=== PATIENT | male | born 1965 | race African-American/Black ===

== ENCOUNTER 2016-12-21 00:59 | Emergency (ER) | payer MEDICARE, MEDICAID ==
[2016-12-21 01:51] LABS: ALT (SGPT) 26 U/L (0-55); AST (SGOT) 29 U/L (5-34); Alkaline Phosphatase 48 U/L (40-150); Anion Gap 16 mmol/L (10-20); BUN (Urea Nitrogen) 23 mg/dL (8.9-20.6); Bilirubin, Total 0.6 mg/dL (0.2-1.2); Calc. Creatinine Clearance 0 mL/min (70-130); Calcium 8.9 mg/dL (7.8-10.44); Carbon Dioxide 26 mmol/L (22-29); Chloride 101 mmol/L (98-107); Estimated GFR-MDRD 67; Globulin 3.9 g/dL (2.4-3.5); Protein, Total 7.7 g/dL (6.0-8.3)
[2016-12-21 01:53] LABS: Troponin I 0.015 ng/mL (< 0.028)
[2016-12-21 01:55] LABS: Band 1 % (5-11); Hematocrit 47.1 % (42.0-52.0); Mean Platelet Volume 8.1 fL (7.4-10.4); Neutrophil 62 % (42-75); Red Blood Cell (RBC) Count 5.26 mill/uL (4.70-6.10); White Blood Cell (WBC) Count 6.8 thou/uL (4.8-10.8)
--- NOTE | 2016-12-21 07:38 | RAD ---
PORTABLE CHEST: DATE: 12/21/16. FINDINGS: An AP portable film at 0122 is compared with a 09/20/16 study. The heart is moderately enlarged. Ev en though this is an AP projection, the overall size seems a little larger than it probably was befo re. There is no pulmonary edema or pleural effusion. One could argue that the upper lobe vessels m ay be minimally prominent, but it is a borderline finding. The cardiac pacer remains in place. No focal pulmonary infiltrates were seen. IMPRESSION: Moderate cardiomegaly with perhaps slight increase in heart size since 09/20/16. POS: HOME
== END 2016-12-21 03:50 | disposition short-term general hospital (02) ==
LOC: BURERS 00:59
DX: R07.2 Precordial pain (principal); E11.9 Type 2 diabetes mellitus without complications; I25.2 Old myocardial infarction; I11.0 Hypertensive heart disease with heart failure; I50.9 Heart failure, unspecified; J44.9 Chronic obstructive pulmonary disease, unspecified; Z79.84 Long term (current) use of oral hypoglycemic drugs; Z79.899 Other long term (current) drug therapy
CPT/HCPCS: 71010; 80053; 82553; 83880; 84484; 85025; 85379; 93005

== ENCOUNTER 2017-05-29 15:04 | Emergency (ER) | payer MEDICARE, MEDICAID ==
[2017-05-29] MEDS ORDERED: HYDROcodone/Acetaminophen 10/325 mg Tablet ONE (15:16)
[2017-05-29] MEDS ORDERED: predniSONE 20 MG TAB ONE (15:16)
[2017-05-29] MEDS ORDERED: Ibuprofen 800 MG TAB ONE (15:16)
[2017-05-29] MEDS ORDERED: Lisinopril 5 MG TAB ONE (15:26)
== END 2017-05-29 15:41 | disposition home or self-care (01) ==
LOC: BURERS 15:04
DX: M10.9 Gout, unspecified (principal); I11.0 Hypertensive heart disease with heart failure; I50.9 Heart failure, unspecified; E11.9 Type 2 diabetes mellitus without complications; J44.9 Chronic obstructive pulmonary disease, unspecified; Z79.899 Other long term (current) drug therapy; Z79.84 Long term (current) use of oral hypoglycemic drugs
CPT/HCPCS: 99283; J7506

== ENCOUNTER 2017-08-27 09:58 | Emergency (ER) | payer MEDICARE, MEDICAID ==
[2017-08-27] MEDS ORDERED: Fentanyl 100 MCG/2 ML VIAL ONE (10:11)
== END 2017-08-27 10:38 | disposition home or self-care (01) ==
LOC: BURERS 09:58
DX: M10.9 Gout, unspecified (principal); E66.9 Obesity, unspecified; E11.9 Type 2 diabetes mellitus without complications; I11.0 Hypertensive heart disease with heart failure; I50.9 Heart failure, unspecified; J44.9 Chronic obstructive pulmonary disease, unspecified
CPT/HCPCS: 96372; J3010

== ENCOUNTER 2017-10-29 17:40 | Emergency (ER) | payer MEDICARE, MEDICAID ==
[2017-10-29 18:05] LABS: #Basophils 0.1 thou/uL (0.0-0.2); #Eosinphils 0.2 thou/uL (0.0-0.7); #Lymphocytes 1.9 thou/uL (1.20-3.40); #Monocytes 0.6 thou/uL (0.11-0.59); #Neutrophils 2.5 thou/uL (1.40-6.50); %Basophils 2.5 % (0.0-1.0); %Eosinophils 4.4 % (0.0-10.0); %Lymphocytes 35.1 % (21.0-51.0); %Monocytes 11.5 % (0.0-10.0); %Neutrophils 46.4 % (42.0-75.0); Hemoglobin 14.4 g/dL (14.0-18.0); Mean Corpuscular HGB CONC 31.7 g/dL (32.0-36.0); Mean Corpuscular Hemoglobin 28.1 pg (27.0-31.0); Mean Corpuscular Volume 88.7 fl (80.0-94.0); Mean Platelet Volume 7.1 fL (7.4-10.4); Platelet Count 242 thou/uL (130-400); RBC Distribution Width 13.3 % (11.5-14.5); Red Blood Cell (RBC) Count 5.12 mill/uL (4.70-6.10); White Blood Cell (WBC) Count 5.3 thou/uL (4.8-10.8)
[2017-10-29 18:08] LABS: Base Excess 3.1 mEq/L (-2 - +2); Hemoglobin (Hb) 15.3 g/dL (13.1-17.2); pH (venous) 7.39 (7.35-7.45)
[2017-10-29 18:23] LABS: ALT (SGPT) 17 U/L (8-55); AST (SGOT) 16 U/L (5-34); Albumin 3.7 g/dL (3.5-5.0); Alkaline Phosphatase 51 U/L (40-150); Anion Gap 14 mmol/L (10-20); BUN (Urea Nitrogen) 16 mg/dL (8.9-20.6); Bilirubin, Total 0.6 mg/dL (0.2-1.2); Calc. Creatinine Clearance 0 mL/min (70-130); Calcium 8.8 mg/dL (7.8-10.44); Carbon Dioxide 26 mmol/L (22-29); Chloride 103 mmol/L (98-107); Estimated GFR-MDRD Greater than 90; Globulin 3.8 g/dL (2.4-3.5); Glucose 139 mg/dL (70-105); Potassium 4.1 mmol/L (3.5-5.1); Protein, Total 7.5 g/dL (6.0-8.3); Sodium 139 mmol/L (136-145)
[2017-10-29 18:25] LABS: CKMB 1.5 ng/mL (0-6.6); Troponin I 0.015 ng/mL (< 0.028)
--- NOTE | 2017-10-29 22:18 | RAD ---
PORTABLE CHEST: Date: 10-29-17 An AP portable film at 1752 is compared with an 09-13-17 study. FINDINGS: Cardiomegaly is about the same as before. There is no clear congestion or edema at the moment. No lob ar infiltrates or effusions were seen. A cardiac pacer is in place as usual. IMPRESSION: Cardiomegaly with no definite acute findings. POS: HOME
== END 2017-10-29 20:20 | disposition short-term general hospital (02) ==
LOC: BURERS 17:40
DX: R07.9 Chest pain, unspecified (principal); E78.5 Hyperlipidemia, unspecified; E66.9 Obesity, unspecified; E11.9 Type 2 diabetes mellitus without complications; M10.9 Gout, unspecified; I11.0 Hypertensive heart disease with heart failure; I50.9 Heart failure, unspecified; J44.9 Chronic obstructive pulmonary disease, unspecified; Z79.82 Long term (current) use of aspirin; Z79.84 Long term (current) use of oral hypoglycemic drugs; Z79.899 Other long term (current) drug therapy
CPT/HCPCS: 71045; 80053; 82553; 82805; 83880; 84484; 85025; 93005

== ENCOUNTER 2018-08-23 16:54 | Emergency (ER) | payer MEDICARE, MEDICAID ==
[2018-08-23] MEDS ORDERED: Nitroglycerin 0.4 MG TAB (25 Tab Bottle) ONE (17:10)
[2018-08-23] MEDS ORDERED: Nitroglycerin 2% Ointment 1 INCH/1 GM Packet ONE (17:10)
[2018-08-23 17:24] LABS: #Basophils 0.1 thou/uL (0.0-0.2); #Eosinphils 0.2 thou/uL (0.0-0.7); #Lymphocytes 1.2 thou/uL (1.20-3.40); #Monocytes 0.6 thou/uL (0.11-0.59); %Basophils 2.5 % (0.0-1.0); %Eosinophils 5.6 % (0.0-10.0); %Lymphocytes 29.5 % (21.0-51.0); %Neutrophils 48.4 % (42.0-75.0); Hemoglobin 14.7 g/dL (14.0-18.0); Mean Corpuscular HGB CONC 32.3 g/dL (32.0-36.0); Mean Corpuscular Hemoglobin 28.6 pg (27.0-31.0); Mean Corpuscular Volume 88.7 fL (78.0-98.0); Mean Platelet Volume 7.5 fL (7.4-10.4); Platelet Count 171 thou/uL (130-400); RBC Distribution Width 13.3 % (11.5-14.5); Red Blood Cell (RBC) Count 5.13 mill/uL (4.70-6.10); White Blood Cell (WBC) Count 4.2 thou/uL (4.8-10.8)
--- NOTE | 2018-08-23 17:36 | RAD ---
PORTABLE CHEST: 08/23/18 An AP portable film at 1643 is compared with the 10/15 03/01 study. Cardiomegaly is about the same as before. The cardiac pacer remains in place. The prominence of the m ediastinum is felt to be due to the portable positioning of the patient. There is no clear vascular c ongestion or pulmonary edema. No major lobar infiltrate or effusion was seen. There is slight haziness in the right base medially but I believe this is due to the patient being ro tated slightly. IMPRESSION: Cardiomegaly with no definite acute findings. POS: HOME
[2018-08-23 17:41] LABS: ALT (SGPT) 52 U/L (8-55); AST (SGOT) 25 U/L (5-34); Albumin 3.9 g/dL (3.5-5.0); Alkaline Phosphatase 90 U/L (40-150); Anion Gap 15 mmol/L (10-20); BUN (Urea Nitrogen) 16 mg/dL (8.4-25.7); Bilirubin, Total 0.6 mg/dL (0.2-1.2); Calc. Creatinine Clearance 0 mL/min (70-130); Calcium 9.2 mg/dL (7.8-10.44); Carbon Dioxide 28 mmol/L (22-29); Chloride 103 mmol/L (98-107); Estimated GFR-MDRD 66; Globulin 3.9 g/dL (2.4-3.5); Glucose 90 mg/dL (70-105); Potassium 4.4 mmol/L (3.5-5.1); Protein, Total 7.8 g/dL (6.0-8.3); Sodium 142 mmol/L (136-145)
[2018-08-23 17:46] LABS: Troponin I Less than 0.010 ng/mL (< 0.028)
[2018-08-23] MEDS ORDERED: Furosemide 40 MG/4 ML VIAL ONE (18:10)
== END 2018-08-23 18:26 | disposition short-term general hospital (02) ==
LOC: BURERS 16:54
DX: I11.0 Hypertensive heart disease with heart failure (principal); I50.9 Heart failure, unspecified; E78.5 Hyperlipidemia, unspecified; M10.9 Gout, unspecified; E66.9 Obesity, unspecified; E11.9 Type 2 diabetes mellitus without complications; J44.9 Chronic obstructive pulmonary disease, unspecified; Z79.899 Other long term (current) drug therapy; Z79.82 Long term (current) use of aspirin
CPT/HCPCS: 71045; 80053; 82553; 83880; 84484; 85025; 93005; 96374; J1940

== ENCOUNTER 2018-12-27 15:09 | Emergency (ER) | payer MEDICARE, MEDICAID ==
[2018-12-27 16:00] LABS: Base Excess-Venous 3.7 mmol/L (-2.0 to 3.0); Bicarbonate (HCO3v) 31.5 mmol/L (22.0-28.0); CO2 Tension (PvCO2) 57.7 mmHg (40.0-50.0); Calcium, Ionized 1.04 mmol/L (See Comments:); Chloride 101 mmol/L (98-107); Hemoglobin - Calc 18.2 g/dL (14.0-18.0); O2 Tension (PvO2) 49.5 mmHg (35.0-45.0); Potassium 4.1 mmol/L (3.5-5.1); Sodium 138 mmol/L (138-145); T. Carbon Dioxide 33.3 mmol/L (22.0-28.0); pH (Venous) 7.346 (7.320-7.430); vO2 Saturation-calc 81.4 % (60.0-85.0)
[2018-12-27] MEDS ORDERED: Furosemide 40 MG/4 ML VIAL ONE (16:00)
[2018-12-27 16:01] LABS: ALT (SGPT) 24 U/L (8-55); AST (SGOT) 28 U/L (5-34); Albumin 3.7 g/dL (3.5-5.0); Alkaline Phosphatase 61 U/L (40-150); Anion Gap 16 mmol/L (10-20); BUN (Urea Nitrogen) 17 mg/dL (8.4-25.7); Bilirubin, Total 0.5 mg/dL (0.2-1.2); Calc. Creatinine Clearance 0 mL/min (70-130); Calcium 8.8 mg/dL (7.8-10.44); Carbon Dioxide 27 mmol/L (22-29); Chloride 101 mmol/L (98-107); Estimated GFR-MDRD 68; Globulin 4.5 g/dL (2.4-3.5); Glucose 112 mg/dL (70-105); Potassium 4.2 mmol/L (3.5-5.1); Protein, Total 8.2 g/dL (6.0-8.3); Sodium 140 mmol/L (136-145)
[2018-12-27 16:04] LABS: #Basophils 0.1 thou/uL (0.0-0.2); #Eosinphils 0.1 thou/uL (0.0-0.7); #Lymphocytes 1.6 thou/uL (1.20-3.40); #Monocytes 0.5 thou/uL (0.11-0.59); #Neutrophils 1.4 thou/uL (1.40-6.50); %Basophils 2.1 % (0.0-1.0); %Lymphocytes 43.5 % (21.0-51.0); %Monocytes 13.5 % (0.0-10.0); %Neutrophils 38.9 % (42.0-75.0); Hemoglobin 16.3 g/dL (14.0-18.0); Mean Corpuscular HGB CONC 33.5 g/dL (32.0-36.0); Mean Corpuscular Hemoglobin 30.4 pg (27.0-31.0); Mean Corpuscular Volume 90.7 fL (78.0-98.0); Mean Platelet Volume 7.7 fL (7.4-10.4); Platelet Count 179 thou/uL (130-400); RBC Distribution Width 12.9 % (11.5-14.5); Red Blood Cell (RBC) Count 5.37 mill/uL (4.70-6.10); White Blood Cell (WBC) Count 3.7 thou/uL (4.8-10.8)
--- NOTE | 2018-12-27 16:07 | RAD ---
CHEST ONE VIEW: HISTORY: Dyspnea. Cough. COMPARISON: 08/23/2018 FINDINGS: Large body habitus lowers the sensitivity of this study. Left transvenous pacemaker is seen. There is cardiomegaly with bilateral vascular congestion. No evidence for confluent lobar pneumonia. Appe arance is overall stable. IMPRESSION: Stable appearing cardiomegaly and vascular congestion without confluent pneumonia. POS: [facility]
[2018-12-27] MEDS ORDERED: Oseltamivir 75 MG CAP ONE (16:25)
== END 2018-12-27 16:33 | disposition home or self-care (01) ==
LOC: BURERS 15:09
DX: J10.1 Influenza due to other identified influenza virus with other respiratory manifestations (principal); M10.9 Gout, unspecified; E66.9 Obesity, unspecified; E11.9 Type 2 diabetes mellitus without complications; E78.5 Hyperlipidemia, unspecified; J44.9 Chronic obstructive pulmonary disease, unspecified; I50.9 Heart failure, unspecified; Z79.899 Other long term (current) drug therapy; Z79.82 Long term (current) use of aspirin; Z79.891 Long term (current) use of opiate analgesic
CPT/HCPCS: 71045; 80053; 82330; 82803; 83880; 84484; 85025; 87804; 93005; 96374; J1940

== ENCOUNTER 2019-01-10 22:04 | Emergency (ER) | payer MEDICARE, MEDICAID ==
[2019-01-10] MEDS ORDERED: predniSONE 20 MG TAB ONE (22:25)
[2019-01-10] MEDS ORDERED: Ketorolac Tromethamine 60 MG/2 ML VIAL ONE (22:26)
== END 2019-01-10 22:45 | disposition home or self-care (01) ==
LOC: BURERS 22:04
DX: M70.21 Olecranon bursitis, right elbow (principal); E78.5 Hyperlipidemia, unspecified; M10.9 Gout, unspecified; E66.9 Obesity, unspecified; E11.9 Type 2 diabetes mellitus without complications; I11.0 Hypertensive heart disease with heart failure; I50.9 Heart failure, unspecified; J44.9 Chronic obstructive pulmonary disease, unspecified
CPT/HCPCS: 96372; J1885

== ENCOUNTER 2019-02-17 17:11 | Emergency (ER) | payer MEDICARE, MEDICAID ==
[2019-02-17] MEDS ORDERED: Furosemide 40 MG/4 ML VIAL ONE (17:47)
[2019-02-17] MEDS ORDERED: Nitroglycerin 2% Ointment 1 INCH/1 GM Packet ONE (17:47)
[2019-02-17] MEDS ORDERED: Aspirin Chewable 81 MG TAB ONE (17:47)
[2019-02-17 18:17] LABS: #Basophils 0.1 thou/uL (0.0-0.2); #Lymphocytes 1.5 thou/uL (1.20-3.40); #Monocytes 0.6 thou/uL (0.11-0.59); #Neutrophils 2.7 thou/uL (1.40-6.50); %Basophils 1.4 % (0.0-1.0); %Lymphocytes 31.1 % (21.0-51.0); %Monocytes 11.6 % (0.0-10.0); Hemoglobin 12.2 g/dL (14.0-18.0); Mean Corpuscular HGB CONC 29.9 g/dL (32.0-36.0); Mean Corpuscular Hemoglobin 26.6 pg (27.0-31.0); Mean Platelet Volume 6.2 fL (7.4-10.4); Platelet Count 428 thou/uL (130-400); RBC Distribution Width 13.3 % (11.5-14.5); Red Blood Cell (RBC) Count 4.57 mill/uL (4.70-6.10); White Blood Cell (WBC) Count 4.9 thou/uL (4.8-10.8)
[2019-02-17 18:27] LABS: ALT (SGPT) 75 U/L (8-55); AST (SGOT) 51 U/L (5-34); Alkaline Phosphatase 221 U/L (40-150); Anion Gap 13 mmol/L (10-20); BUN (Urea Nitrogen) 18 mg/dL (8.4-25.7); Bilirubin, Total 0.6 mg/dL (0.2-1.2); Calc. Creatinine Clearance 0 mL/min (70-130); Calcium 8.6 mg/dL (7.8-10.44); Carbon Dioxide 31 mmol/L (22-29); Chloride 99 mmol/L (98-107); Estimated GFR-MDRD 73; Glucose 120 mg/dL (70-105); Lipase 321 U/L (8-78); Sodium 139 mmol/L (136-145)
[2019-02-17] MEDS ORDERED: hydrALAZINE 25 MG TAB PO SCH (19:45)
[2019-02-17] MEDS ORDERED: Carvedilol 25 MG TAB PO SCH (19:45)
--- NOTE | 2019-02-17 20:22 | RAD ---
PORTABLE CHEST: Date: 02-17-19 An AP portable film at 1735 is compared to a 01-14-19 study from [facility]. FINDINGS: Mild cardiomegaly is about the same as before. There is no vascular congestion, edema, or pleural eff usion. The lungs are clear. Cardiac pacer remains in place and the generator partially obscures areas around the left lower lobe/left costophrenic angle. IMPRESSION: Mild cardiomegaly but no congestive change. POS: HOME
[2019-02-17 20:25] LABS: Troponin I Less than 0.010 ng/mL (< 0.028)
== END 2019-02-17 20:42 | disposition home or self-care (01) ==
LOC: BURERS 17:11
DX: I16.0 Hypertensive urgency (principal); E11.9 Type 2 diabetes mellitus without complications; J44.9 Chronic obstructive pulmonary disease, unspecified; M10.9 Gout, unspecified; I11.0 Hypertensive heart disease with heart failure; I50.9 Heart failure, unspecified; Z79.82 Long term (current) use of aspirin; Z79.899 Other long term (current) drug therapy; Z79.891 Long term (current) use of opiate analgesic
CPT/HCPCS: 71045; 80053; 83690; 83880; 84484; 85025; 93005; 96374; J1940; J7620

== ENCOUNTER 2019-04-11 09:47 | Emergency (ER) | payer MEDICARE, MEDICAID ==
[2019-04-11 10:21] LABS: #Basophils 0.1 thou/uL (0.0-0.2); #Eosinphils 0.1 thou/uL (0.0-0.7); #Lymphocytes 1.5 thou/uL (1.20-3.40); #Monocytes 0.7 thou/uL (0.11-0.59); #Neutrophils 4.4 thou/uL (1.40-6.50); %Basophils 0.8 % (0.0-1.0); %Eosinophils 1.3 % (0.0-10.0); %Lymphocytes 22.1 % (21.0-51.0); %Monocytes 10.6 % (0.0-10.0); %Neutrophils 65.2 % (42.0-75.0); Hemoglobin 10.4 g/dL (14.0-18.0); Mean Corpuscular HGB CONC 30.5 g/dL (32.0-36.0); Mean Corpuscular Hemoglobin 26.4 pg (27.0-31.0); Mean Corpuscular Volume 86.5 fL (78.0-98.0); Platelet Count 309 thou/uL (130-400); RBC Distribution Width 14.1 % (11.5-14.5); Red Blood Cell (RBC) Count 3.96 mill/uL (4.70-6.10); White Blood Cell (WBC) Count 6.7 thou/uL (4.8-10.8)
[2019-04-11] MEDS ORDERED: Ibuprofen 800 MG TAB ONE (10:27)
[2019-04-11] MEDS ORDERED: HYDROcodone/Acetaminophen 10/325 mg Tablet ONE (10:28)
== END 2019-04-11 10:42 | disposition home or self-care (01) ==
LOC: BURERS 09:47
DX: M10.9 Gout, unspecified (principal); I11.0 Hypertensive heart disease with heart failure; I50.9 Heart failure, unspecified; E11.9 Type 2 diabetes mellitus without complications; E78.5 Hyperlipidemia, unspecified; J44.9 Chronic obstructive pulmonary disease, unspecified; Z87.898 Personal history of other specified conditions; Z86.718 Personal history of other venous thrombosis and embolism; Z79.84 Long term (current) use of oral hypoglycemic drugs; Z79.899 Other long term (current) drug therapy
CPT/HCPCS: 36415; 84550; 85025; 99283

== ENCOUNTER 2019-07-23 02:02 | Emergency (ER) | payer MEDICARE, OTHER ==
[2019-07-23] MEDS ORDERED: Aspirin Chewable 81 MG TAB ONE (02:18)
[2019-07-23] MEDS ORDERED: Nitroglycerin 0.4 MG TAB 1 EACH ONE (02:18)
[2019-07-23] MEDS ORDERED: Metoprolol Tartrate 5 MG/5 ML VIAL ONE (02:22)
[2019-07-23 02:31] LABS: PTT 29.2 SEC (22.9-36.1); Prothrombin Time 12.9 SEC (12.0-14.7)
[2019-07-23 02:39] LABS: ALT (SGPT) 20 U/L (8-55); AST (SGOT) 20 U/L (5-34); Albumin 3.9 g/dL (3.5-5.0); Alkaline Phosphatase 63 U/L (40-110); Anion Gap 18 mmol/L (10-20); BUN (Urea Nitrogen) 19 mg/dL (8.4-25.7); Bilirubin, Total 0.7 mg/dL (0.2-1.2); Calc. Creatinine Clearance 0 mL/min (70-130); Calcium 9.1 mg/dL (7.8-10.44); Carbon Dioxide 27 mmol/L (22-29); Chloride 100 mmol/L (98-107); Estimated GFR-MDRD 67; Globulin 4.3 g/dL (2.4-3.5); Glucose 126 mg/dL (70-105); Potassium 3.5 mmol/L (3.5-5.1); Protein, Total 8.2 g/dL (6.0-8.3); Sodium 141 mmol/L (136-145)
[2019-07-23 02:46] LABS: Eosinophils 3 % (0-10); Hemoglobin 14.3 g/dL (14.0-18.0); Lymphocytes 36 % (21-51); MDiff Complete? YES; Mean Corpuscular Hemoglobin 27.5 pg (27.0-31.0); Mean Corpuscular Volume 85.8 fL (78.0-98.0); Mean Platelet Volume 6.9 fL (7.4-10.4); Monocytes 7 % (0-10); Neutrophil 54 % (42-75); Platelet Count 234 thou/uL (130-400); Platelet Morphology Comment Appears Adequate; RBC Distribution Width 14.1 % (11.5-14.5); RBC Morphology Normal; White Blood Cell (WBC) Count 5.8 thou/uL (4.8-10.8)
--- NOTE | 2019-07-23 07:41 | RAD ---
PORTABLE CHEST: DATE: 07/23/2019. FINDINGS: An AP portable film at 0229 is compared with a 03/12/2019 study from [facility]. The heart is borderline in size but unchanged. There is no vascular congestion or edema. No pleural effusions are seen. No definite lobar consolidations are seen. Slight haziness over the lower lung s is felt to be due to the overlying soft tissues. A cardiac pacer is in place as usual. The genera tor partially obscures the left base. IMPRESSION: No acute finding. POS: HOME
== END 2019-07-23 03:03 | disposition short-term general hospital (02) ==
LOC: BURERS 02:02
DX: R07.89 Other chest pain (principal); I11.0 Hypertensive heart disease with heart failure; I50.9 Heart failure, unspecified; E11.9 Type 2 diabetes mellitus without complications; E78.5 Hyperlipidemia, unspecified; J44.9 Chronic obstructive pulmonary disease, unspecified; Z79.899 Other long term (current) drug therapy
CPT/HCPCS: 71045; 80053; 83880; 84484; 85025; 85610; 85730; 93005; 96374

== ENCOUNTER 2019-08-13 17:06 | Emergency (ER) | payer MEDICARE, MEDICAID ==
[2019-08-13] MEDS ORDERED: Nitroglycerin 0.4 MG TAB 1 EACH ONE (17:22)
[2019-08-13] MEDS ORDERED: Nitroglycerin 2% Ointment 1 INCH/1 GM Packet ONE (17:23)
[2019-08-13 17:26] LABS: #Basophils 0.1 thou/uL (0.0-0.2); #Eosinphils 0.1 thou/uL (0.0-0.7); #Lymphocytes 2.2 thou/uL (1.20-3.40); #Monocytes 0.6 thou/uL (0.11-0.59); %Basophils 1.9 % (0.0-1.0); %Eosinophils 2.5 % (0.0-10.0); %Lymphocytes 43.7 % (21.0-51.0); %Monocytes 12.3 % (0.0-10.0); %Neutrophils 39.6 % (42.0-75.0); Hemoglobin 13.4 g/dL (14.0-18.0); Mean Corpuscular HGB CONC 30.4 g/dL (32.0-36.0); Mean Corpuscular Hemoglobin 27.7 pg (27.0-31.0); Mean Corpuscular Volume 91.3 fL (78.0-98.0); Mean Platelet Volume 6.8 fL (7.4-10.4); Platelet Count 283 thou/uL (130-400); RBC Distribution Width 14.2 % (11.5-14.5); Red Blood Cell (RBC) Count 4.82 mill/uL (4.70-6.10); White Blood Cell (WBC) Count 5.1 thou/uL (4.8-10.8)
[2019-08-13] MEDS ORDERED: Aspirin Chewable 81 MG TAB ONE (17:28)
[2019-08-13] MEDS ORDERED: Fentanyl 100 MCG/2 ML VIAL ONE (17:39)
[2019-08-13 17:44] LABS: ALT (SGPT) 18 U/L (8-55); AST (SGOT) 18 U/L (5-34); Albumin 4.1 g/dL (3.5-5.0); Alkaline Phosphatase 52 U/L (40-110); Anion Gap 15 mmol/L (10-20); BUN (Urea Nitrogen) 26 mg/dL (8.4-25.7); Bilirubin, Total 0.7 mg/dL (0.2-1.2); Calc. Creatinine Clearance 0 mL/min (70-130); Calcium 9.1 mg/dL (7.8-10.44); Carbon Dioxide 27 mmol/L (22-29); Chloride 102 mmol/L (98-107); Estimated GFR-MDRD 40; Globulin 3.8 g/dL (2.4-3.5); Glucose 92 mg/dL (70-105); Potassium 4.4 mmol/L (3.5-5.1); Protein, Total 7.9 g/dL (6.0-8.3); Sodium 140 mmol/L (136-145)
[2019-08-13] MEDS ORDERED: Metoprolol Tartrate 5 MG/5 ML VIAL ONE (18:00)
--- NOTE | 2019-08-14 01:00 | RAD ---
PORTABLE CHEST: 08/13/19 An AP portable film at 1718 is compared with a 07/23/19 study. Mild cardiomegaly is present. There is no pulmonary edema or pleural effusion. No focal pulmonary inf iltrate was seen. A cardiac pacer remains in place. IMPRESSION: Cardiomegaly with minimal change since the prior study. POS: HOME
== END 2019-08-13 18:14 | disposition short-term general hospital (02) ==
LOC: BURERS 17:06
DX: R07.9 Chest pain, unspecified (principal); N28.9 Disorder of kidney and ureter, unspecified; R00.2 Palpitations; T46.5X5A Adverse effect of other antihypertensive drugs, initial encounter; I11.0 Hypertensive heart disease with heart failure; I50.9 Heart failure, unspecified; E11.9 Type 2 diabetes mellitus without complications; E78.5 Hyperlipidemia, unspecified; J44.9 Chronic obstructive pulmonary disease, unspecified; Z79.899 Other long term (current) drug therapy; Z79.84 Long term (current) use of oral hypoglycemic drugs; Z86.718 Personal history of other venous thrombosis and embolism; Z79.82 Long term (current) use of aspirin
CPT/HCPCS: 36416; 71045; 80053; 83880; 84484; 85025; 93005; 94760; 96374; 96375; J3010

== ENCOUNTER 2020-05-24 01:57 | Emergency (ER) | payer MEDICARE, MEDICAID ==
[2020-05-24] MEDS ORDERED: HYDROcodone/Acetaminophen 10/325 mg Tablet ONE (02:30)
[2020-05-24] MEDS ORDERED: Ibuprofen 800 MG TAB ONE (02:31)
== END 2020-05-24 02:33 | disposition home or self-care (01) ==
LOC: BURERS 01:57
DX: M10.9 Gout, unspecified (principal); I11.0 Hypertensive heart disease with heart failure; I50.9 Heart failure, unspecified; E11.9 Type 2 diabetes mellitus without complications; E78.5 Hyperlipidemia, unspecified; J44.9 Chronic obstructive pulmonary disease, unspecified; Z86.718 Personal history of other venous thrombosis and embolism; Z79.899 Other long term (current) drug therapy; Z79.84 Long term (current) use of oral hypoglycemic drugs; Z79.82 Long term (current) use of aspirin
CPT/HCPCS: 99283

== ENCOUNTER 2020-06-14 03:10 | Emergency (ER) | payer MEDICARE, OTHER ==
[2020-06-14 04:09] LABS: ALT (SGPT) 16 U/L (8-55); AST (SGOT) 18 U/L (5-34); Albumin 3.8 g/dL (3.5-5.0); Alkaline Phosphatase 55 U/L (40-110); Anion Gap 16 mmol/L (10-20); BUN (Urea Nitrogen) 22 mg/dL (8.4-25.7); Bilirubin, Total 0.8 mg/dL (0.2-1.2); Calc. Creatinine Clearance 0 mL/min (70-130); Calcium 8.7 mg/dL (7.8-10.44); Carbon Dioxide 28 mmol/L (22-29); Chloride 101 mmol/L (98-107); Estimated GFR-MDRD 56; Globulin 3.5 g/dL (2.4-3.5); Glucose 150 mg/dL (70-105); Potassium 3.8 mmol/L (3.5-5.1); Protein, Total 7.3 g/dL (6.0-8.3); Sodium 141 mmol/L (136-145)
[2020-06-14 06:05] LABS: #Eosinphils 0.2 thou/uL (0.0-0.7); #Lymphocytes 1.8 thou/uL (1.20-3.40); #Monocytes 0.6 thou/uL (0.11-0.59); #Neutrophils 2.6 thou/uL (1.40-6.50); %Basophils 0.5 % (0.0-1.0); %Eosinophils 3.2 % (0.0-10.0); %Lymphocytes 34.7 % (21.0-51.0); %Monocytes 11.5 % (0.0-10.0); %Neutrophils 50.1 % (42.0-75.0); Hemoglobin 13.6 g/dL (14.0-18.0); Mean Corpuscular HGB CONC 32.4 g/dL (32.0-36.0); Mean Corpuscular Hemoglobin 29.3 pg (27.0-31.0); Mean Corpuscular Volume 90.2 fL (78.0-98.0); Mean Platelet Volume 8.3 fL (7.4-10.4); Platelet Count 226 thou/uL (130-400); RBC Distribution Width 12.9 % (11.5-14.5); Red Blood Cell (RBC) Count 4.63 mill/uL (4.70-6.10); White Blood Cell (WBC) Count 5.2 thou/uL (4.8-10.8)
--- NOTE | 2020-06-14 07:42 | RAD ---
PORTABLE CHEST: Date: 06/14/2020 An AP portable film at 0402 hours is compared with the 08/13/2019 study. A cardiac pacer is in place as usual. Mild cardiomegaly seems no different than before. There is no v ascular congestion, pulmonary edema, or large pleural effusions. The lungs are clear. IMPRESSION: Mild cardiomegaly, but no acute finding. POS: HOME
== END 2020-06-14 04:43 | disposition home or self-care (01) ==
LOC: BURERS 03:10
DX: G47.33 Obstructive sleep apnea (adult) (pediatric) (principal); R00.2 Palpitations; I11.0 Hypertensive heart disease with heart failure; I50.9 Heart failure, unspecified; E11.9 Type 2 diabetes mellitus without complications; E78.5 Hyperlipidemia, unspecified; J44.9 Chronic obstructive pulmonary disease, unspecified; Z86.718 Personal history of other venous thrombosis and embolism; M10.9 Gout, unspecified; Z79.899 Other long term (current) drug therapy; Z79.82 Long term (current) use of aspirin; Z79.84 Long term (current) use of oral hypoglycemic drugs
CPT/HCPCS: 36415; 71045; 80053; 83880; 84484; 85025; 93005; 94760

== ENCOUNTER 2020-09-24 09:10 | Emergency (ER) | payer MEDICARE, MEDICAID ==
[2020-09-24] MEDS ORDERED: Ketorolac Tromethamine 30 MG/ML VIAL ONE (09:31)
== END 2020-09-24 09:45 | disposition home or self-care (01) ==
LOC: BURERS 09:10
DX: M54.31 Sciatica, right side (principal); I10 Essential (primary) hypertension; Z79.899 Other long term (current) drug therapy; E11.9 Type 2 diabetes mellitus without complications; I11.0 Hypertensive heart disease with heart failure; I50.9 Heart failure, unspecified; E78.5 Hyperlipidemia, unspecified; J44.9 Chronic obstructive pulmonary disease, unspecified; M10.9 Gout, unspecified; G47.30 Sleep apnea, unspecified
CPT/HCPCS: 96372; 99283; J1885

== ENCOUNTER 2020-11-15 09:13 | Emergency (ER) | payer MEDICARE, MEDICAID ==
[2020-11-15 09:58] LABS: Band 3 % (5-11); Hemoglobin 14.1 g/dL (14.0-18.0); Lymphocytes 29 % (21-51); MDiff Complete? YES; Mean Corpuscular HGB CONC 31.3 g/dL (32.0-36.0); Mean Corpuscular Hemoglobin 27.9 pg (27.0-31.0); Mean Corpuscular Volume 89.3 fL (78.0-98.0); Mean Platelet Volume 7.3 fL (7.4-10.4); Monocytes 3 % (0-10); Neutrophil 65 % (42-75); Platelet Count 313 thou/uL (130-400); Red Blood Cell (RBC) Count 5.04 mill/uL (4.70-6.10); White Blood Cell (WBC) Count 7.8 thou/uL (4.8-10.8)
[2020-11-15 10:11] LABS: ALT (SGPT) 14 U/L (8-55); AST (SGOT) 17 U/L (5-34); Albumin 4.2 g/dL (3.5-5.0); Alkaline Phosphatase 53 U/L (40-110); Anion Gap 19 mmol/L (10-20); BUN (Urea Nitrogen) 34 mg/dL (8.4-25.7); Bilirubin, Total 0.7 mg/dL (0.2-1.2); CK (CPK) 301 U/L (30-200); Calc. Creatinine Clearance 0 mL/min (70-130); Calcium 9.5 mg/dL (7.8-10.44); Carbon Dioxide 23 mmol/L (22-29); Chloride 101 mmol/L (98-107); Globulin 4.3 g/dL (2.4-3.5); Glucose 115 mg/dL (70-105); Potassium 4.5 mmol/L (3.5-5.1); Protein, Total 8.5 g/dL (6.0-8.3); Sodium 138 mmol/L (136-145)
[2020-11-15] MEDS ORDERED: traMADol HCl 50 MG TAB ONE (10:48)
--- NOTE | 2020-11-15 13:33 | RAD ---
PORTABLE CHEST: DATE: 11/15/2020. FINDINGS: An AP portable film at 1017 is compared with an 06/14/2020 study. FINDINGS: Mild cardiomegaly is about the same as before. There is no overt pulmonary edema or congestion. No effusions were seen. A unipolar cardiac pacer remains in place. The lungs are clear. IMPRESSION: No acute finding. POS: HOME
--- NOTE | 2020-11-15 13:34 | RAD ---
LEFT KNEE 4 VIEWS: DATE: 11/15/2020. FINDINGS: Degenerative changes are present, somewhat advanced for age. This includes osteophytes and medial ho int space narrowing. Patellofemoral osteophytes are seen. There is probably a small joint effusion, but no acute bony change was noted. IMPRESSION: Degenerative changes and small joint effusion. POS: HOME
--- NOTE | 2020-11-15 13:36 | RAD ---
LEFT ANKLE 3 VIEWS: DATE: 11/15/2020. FINDINGS: Marked soft tissue swelling is present. There are numerous dystrophic calcifications in the soft tis sues that are most likely due to chronic venous stasis. The underlying bones showed no acute change. A large calcaneal spur was noted. IMPRESSION: Soft tissue swelling with dystrophic skin calcifications. No acute bony findings. POS: HOME
--- NOTE | 2020-11-15 13:37 | RAD ---
RIGHT ANKLE 3 VIEWS: DATE: 11/15/2020. COMPARISON: Comparison is made with the left ankle. Soft tissue swelling is present here as well, along with num erous dystrophic calcifications that are likely related to chronic venous insufficiency and stasis. No fracture or acute bony change was seen. A calcaneal spur is present. IMPRESSION: Swelling and soft tissue calcification. POS: HOME
== END 2020-11-15 11:14 | disposition home or self-care (01) ==
LOC: BURERS 09:13
DX: M17.0 Bilateral primary osteoarthritis of knee (principal); R60.0 Localized edema; E11.9 Type 2 diabetes mellitus without complications; M10.9 Gout, unspecified; E78.5 Hyperlipidemia, unspecified; G47.30 Sleep apnea, unspecified; I11.0 Hypertensive heart disease with heart failure; I50.9 Heart failure, unspecified; Z86.718 Personal history of other venous thrombosis and embolism; Z79.51 Long term (current) use of inhaled steroids; Z79.899 Other long term (current) drug therapy
CPT/HCPCS: 36415; 71045; 80053; 82550; 83880; 84484; 85025; 93005

== ENCOUNTER 2020-12-07 09:36 | Emergency (ER) | payer MEDICARE, MEDICAID ==
[2020-12-07] MEDS ORDERED: Dexamethasone 10 MG/ML VIAL ONE (10:05)
== END 2020-12-07 10:09 | disposition home or self-care (01) ==
LOC: BURERS 09:36
DX: M10.9 Gout, unspecified (principal); I11.0 Hypertensive heart disease with heart failure; I50.9 Heart failure, unspecified; E11.9 Type 2 diabetes mellitus without complications; E78.5 Hyperlipidemia, unspecified; J44.9 Chronic obstructive pulmonary disease, unspecified; Z86.718 Personal history of other venous thrombosis and embolism; Z79.899 Other long term (current) drug therapy
CPT/HCPCS: 96374; J1100

== ENCOUNTER 2021-04-11 09:06 | Emergency (ER) | payer MEDICARE, MEDICAID ==
[2021-04-11] MEDS ORDERED: Acetaminophen/Codeine 30-300mg Tablet ONE (09:46)
[2021-04-11] MEDS ORDERED: Ketorolac Tromethamine 30 MG/ML VIAL ONE (09:46)
== END 2021-04-11 10:25 | disposition home or self-care (01) ==
LOC: BURERS 09:06
DX: M10.9 Gout, unspecified (principal); I11.0 Hypertensive heart disease with heart failure; I50.9 Heart failure, unspecified; E11.9 Type 2 diabetes mellitus without complications; E78.5 Hyperlipidemia, unspecified; J44.9 Chronic obstructive pulmonary disease, unspecified; Z86.718 Personal history of other venous thrombosis and embolism; G47.30 Sleep apnea, unspecified; Z79.899 Other long term (current) drug therapy; Z79.82 Long term (current) use of aspirin
CPT/HCPCS: 96372; 99283; J1885

== ENCOUNTER 2021-08-21 15:39 | Emergency (ER) | payer MEDICARE, MEDICAID ==
[2021-08-21] MEDS ORDERED: Ibuprofen 800 MG TAB ONE (16:18)
[2021-08-21] MEDS ORDERED: HYDROcodone/Acetaminophen 10/325 mg Tablet ONE (16:18)
== END 2021-08-21 16:35 | disposition home or self-care (01) ==
LOC: BURERS 15:39
DX: M10.9 Gout, unspecified (principal); E11.9 Type 2 diabetes mellitus without complications; E78.5 Hyperlipidemia, unspecified; I10 Essential (primary) hypertension; J44.9 Chronic obstructive pulmonary disease, unspecified; Z86.718 Personal history of other venous thrombosis and embolism
CPT/HCPCS: 99283

== ENCOUNTER 2021-09-28 15:38 | Emergency (ER) | payer MEDICARE, MEDICAID ==
[2021-09-28 16:18] LABS: #Basophils 0.1 thou/uL (0.0-0.2); #Eosinphils 0.2 thou/uL (0.0-0.7); #Lymphocytes 1.7 thou/uL (1.20-3.40); #Monocytes 0.6 thou/uL (0.11-0.59); #Neutrophils 2.7 thou/uL (1.40-6.50); %Basophils 2.3 % (0.0-1.0); %Eosinophils 4.3 % (0.0-10.0); %Lymphocytes 31.8 % (21.0-51.0); %Monocytes 10.6 % (0.0-10.0); Hemoglobin 13.3 g/dL (14.0-18.0); Mean Corpuscular HGB CONC 32.4 g/dL (32.0-36.0); Mean Corpuscular Hemoglobin 28.9 pg (27.0-31.0); Mean Corpuscular Volume 89.2 fL (78.0-98.0); Mean Platelet Volume 7.2 fL (7.4-10.4); Platelet Count 204 thou/uL (130-400); RBC Distribution Width 13.9 % (11.5-14.5); Red Blood Cell (RBC) Count 4.61 mill/uL (4.70-6.10); White Blood Cell (WBC) Count 5.3 thou/uL (4.8-10.8)
[2021-09-28 16:23] LABS: ALT (SGPT) 17 U/L (8-55); AST (SGOT) 14 U/L (5-34); Albumin 3.8 g/dL (3.5-5.0); Alkaline Phosphatase 64 U/L (40-110); Anion Gap 15 mmol/L (10-20); BUN (Urea Nitrogen) 32 mg/dL (8.4-25.7); Bilirubin, Total 0.7 mg/dL (0.2-1.2); Calc. Creatinine Clearance 0 mL/min (70-130); Calcium 9.1 mg/dL (7.8-10.44); Carbon Dioxide 23 mmol/L (22-29); Chloride 106 mmol/L (98-107); Globulin 3.6 g/dL (2.4-3.5); Glucose 139 mg/dL (70-105); Lipase 96 U/L (8-78); Magnesium 1.9 mg/dL (1.6-2.6); Potassium 4.3 mmol/L (3.5-5.1); Protein, Total 7.4 g/dL (6.0-8.3); Sodium 140 mmol/L (136-145)
[2021-09-28] MEDS ORDERED: Aspirin Chewable 81 MG TAB ONE (16:44)
== END 2021-09-28 16:58 | disposition left against medical advice (07) ==
LOC: BURERS 15:38
DX: R07.9 Chest pain, unspecified (principal); I49.9 Cardiac arrhythmia, unspecified; E66.9 Obesity, unspecified; R60.0 Localized edema; I11.0 Hypertensive heart disease with heart failure; I50.9 Heart failure, unspecified; E11.9 Type 2 diabetes mellitus without complications; E78.5 Hyperlipidemia, unspecified; J44.9 Chronic obstructive pulmonary disease, unspecified; M10.9 Gout, unspecified; Z68.45 Body mass index [BMI] 70 or greater, adult; Z86.718 Personal history of other venous thrombosis and embolism; Z79.84 Long term (current) use of oral hypoglycemic drugs; Z79.899 Other long term (current) drug therapy
CPT/HCPCS: 71045; 80053; 83690; 83735; 84484; 85025; 93005; 94760

== ENCOUNTER 2022-03-29 07:56 | Emergency (ER) | payer MEDICARE, MEDICAID ==
[2022-03-29] MEDS ORDERED: predniSONE 20 MG TAB ONE (09:08)
== END 2022-03-29 09:12 | disposition home or self-care (01) ==
LOC: BURERS 07:56
DX: M10.9 Gout, unspecified (principal); I11.0 Hypertensive heart disease with heart failure; I50.9 Heart failure, unspecified; E11.9 Type 2 diabetes mellitus without complications; E78.5 Hyperlipidemia, unspecified; J44.9 Chronic obstructive pulmonary disease, unspecified; Z86.718 Personal history of other venous thrombosis and embolism; Z79.899 Other long term (current) drug therapy
CPT/HCPCS: J7512

== ENCOUNTER 2022-05-16 11:50 | Emergency (ER) | payer MEDICARE, MEDICAID ==
[2022-05-16] MEDS ORDERED: HYDROcodone/Acetaminophen 10/325 mg Tablet ONE (12:21)
[2022-05-16] MEDS ORDERED: Ibuprofen 800 MG TAB ONE (12:21)
== END 2022-05-16 12:36 | disposition home or self-care (01) ==
LOC: BURERS 11:50
DX: M10.9 Gout, unspecified (principal); I11.0 Hypertensive heart disease with heart failure; I50.9 Heart failure, unspecified; E11.9 Type 2 diabetes mellitus without complications; E78.5 Hyperlipidemia, unspecified; J44.9 Chronic obstructive pulmonary disease, unspecified; Z86.718 Personal history of other venous thrombosis and embolism
CPT/HCPCS: 99283

== ENCOUNTER 2022-06-23 08:58 | Emergency (ER) | payer MEDICARE, OTHER ==
[2022-06-23] MEDS ORDERED: predniSONE 20 MG TAB ONE (09:31)
== END 2022-06-23 09:35 | disposition home or self-care (01) ==
LOC: BURERS 08:58
DX: M10.9 Gout, unspecified (principal); E11.9 Type 2 diabetes mellitus without complications; I10 Essential (primary) hypertension; E78.5 Hyperlipidemia, unspecified; J44.9 Chronic obstructive pulmonary disease, unspecified
CPT/HCPCS: 99283; J7512

== ENCOUNTER 2023-07-19 04:22 | Emergency (ER) | payer MEDICARE, OTHER, MEDICAID ==
[2023-07-19 04:50] LABS: #Basophils 0.1 thou/uL (0.0-0.2); #Eosinphils 0.4 thou/uL (0.0-0.7); #Monocytes 0.5 thou/uL (0.11-0.59); #Neutrophils 2.5 thou/uL (1.40-6.50); %Basophils 1.6 % (0.0-1.0); %Eosinophils 6.5 % (0.0-10.0); %Lymphocytes 36.8 % (21.0-51.0); %Monocytes 8.5 % (0.0-10.0); %Neutrophils 46.6 % (42.0-75.0); Hematocrit 45.7 % (42.0-52.0); Hemoglobin 14.1 g/dL (14.0-18.0); Mean Corpuscular HGB CONC 30.9 g/dL (32.0-36.0); Mean Corpuscular Hemoglobin 28.6 pg (27.0-31.0); Mean Corpuscular Volume 92.7 fl (78.0-98.0); Mean Platelet Volume 7.9 fL (7.4-10.4); Platelet Count 207 10x3/uL (130-400); RBC Distribution Width 13.1 % (11.5-14.5); Red Blood Cell (RBC) Count 4.93 mill/uL (4.70-6.10); White Blood Cell (WBC) Count 5.4 10x3/uL (4.8-10.8)
[2023-07-19 05:07] LABS: Troponin I 0.024 ng/mL (< 0.028)
[2023-07-19] MEDS ORDERED: Ketorolac Tromethamine 30 MG/ML VIAL ONE (05:25)
[2023-07-19 05:39] LABS: ALT (SGPT) 17 U/L (8-55); AST (SGOT) 22 U/L (5-34); Albumin 3.4 g/dL (3.5-5.0); Alkaline Phosphatase 57 U/L (40-110); Anion Gap 16 mmol/L (10-20); BUN (Urea Nitrogen) 27 mg/dL (8.4-25.7); Bilirubin, Total 0.7 mg/dL (0.2-1.2); Calc. Creatinine Clearance 0 mL/min (70-130); Calcium 8.5 mg/dL (7.8-10.44); Carbon Dioxide 23 mmol/L (22-29); Chloride 103 mmol/L (98-107); Estimated GFR 43; Globulin 3.7 g/dL (2.4-3.5); Glucose 102 mg/dL (70-105); Potassium 4.4 mmol/L (3.5-5.1); Protein, Total 7.1 g/dL (6.0-8.3); Sodium 138 mmol/L (136-145)
== END 2023-07-19 05:45 | disposition home or self-care (01) ==
LOC: BURERS 04:22
DX: R07.89 Other chest pain (principal); I11.0 Hypertensive heart disease with heart failure; I50.9 Heart failure, unspecified; E11.9 Type 2 diabetes mellitus without complications; E78.5 Hyperlipidemia, unspecified; J44.9 Chronic obstructive pulmonary disease, unspecified; Z86.718 Personal history of other venous thrombosis and embolism; Z79.899 Other long term (current) drug therapy; Z79.84 Long term (current) use of oral hypoglycemic drugs; Z79.82 Long term (current) use of aspirin
CPT/HCPCS: 71045; 80053; 83880; 84484; 85025; 93005; 96374; J1885

== ENCOUNTER 2023-12-13 11:00 | Emergency (ER) | payer MEDICARE, MEDICAID ==
[2023-12-13] MEDS ORDERED: predniSONE 20 MG TAB ONE (11:26)
== END 2023-12-13 11:40 | disposition home or self-care (01) ==
LOC: BURERS 11:00
DX: M10.9 Gout, unspecified (principal); E11.9 Type 2 diabetes mellitus without complications; E78.5 Hyperlipidemia, unspecified; J44.9 Chronic obstructive pulmonary disease, unspecified; I11.0 Hypertensive heart disease with heart failure; I50.9 Heart failure, unspecified; Z79.899 Other long term (current) drug therapy; Z79.82 Long term (current) use of aspirin
CPT/HCPCS: 99283; J7512

== ENCOUNTER 2023-12-20 11:34 | Emergency (ER) | payer MEDICARE, MEDICAID | END 2023-12-20 12:08 | disposition home or self-care (01) | LOC: BURERS 11:34 | DX: M10.9 Gout, unspecified (principal); I11.0 Hypertensive heart disease with heart failure; I50.9 Heart failure, unspecified; J44.9 Chronic obstructive pulmonary disease, unspecified; E11.9 Type 2 diabetes mellitus without complications; E78.5 Hyperlipidemia, unspecified; Z79.51 Long term (current) use of inhaled steroids; Z79.899 Other long term (current) drug therapy | CPT/HCPCS: 99283 ==

== ENCOUNTER 2024-03-03 23:59 | Emergency (ER) | payer MEDICARE ==
[2024-03-04] MEDS ORDERED: predniSONE 20 MG TAB ONE (00:27)
[2024-03-04] MEDS ORDERED: Acetaminophen 500 MG TAB ONE (00:35)
== END 2024-03-04 00:56 | disposition home or self-care (01) ==
LOC: BURERS 23:59
DX: M10.9 Gout, unspecified (principal); J44.9 Chronic obstructive pulmonary disease, unspecified; I11.0 Hypertensive heart disease with heart failure; I50.9 Heart failure, unspecified; E11.9 Type 2 diabetes mellitus without complications; E78.5 Hyperlipidemia, unspecified; Z79.899 Other long term (current) drug therapy
CPT/HCPCS: 99283; J7512

== ENCOUNTER 2024-09-19 18:43 | Emergency (ER) | payer MEDICARE, OTHER ==
[2024-09-19] MEDS ORDERED: Colchicine 0.6 MG TAB ONE (19:20)
[2024-09-19] MEDS ORDERED: predniSONE 20 MG TAB ONE (19:21)
== END 2024-09-19 20:14 | disposition home or self-care (01) ==
LOC: BURERS 18:43
DX: M10.9 Gout, unspecified (principal); E11.9 Type 2 diabetes mellitus without complications; I11.0 Hypertensive heart disease with heart failure; I50.9 Heart failure, unspecified; J44.9 Chronic obstructive pulmonary disease, unspecified; Z86.718 Personal history of other venous thrombosis and embolism
CPT/HCPCS: 99283; J7512

== ENCOUNTER 2025-09-06 03:12 | Emergency (ER) | payer MEDICARE, MEDICAID ==
[2025-09-06] MEDS ORDERED: Famotidine/PF 20 mg/2ml Vial ONE (04:07)
[2025-09-06 04:16] LABS: Glucose, Urine (Dipstick) 100 mg/dL (Negative); Leukocyte Trace (Negative); Protein, Urine (Dipstick) 100 mg/dL (Neg-Trace); Specific Gravity, Urine 1.020 (1.005-1.030)
[2025-09-06 04:18] LABS: Bacteria/HPF None Seen HPF (None Seen); CAUTI Indications for Culture Pelvic or flank pain; RBC/HPF None Seen HPF (0-3); WBC/HPF None Seen HPF (0-3)
[2025-09-06 04:19] LABS: Urine Culture Reflex No No
[2025-09-06 04:20] LABS: ALT (SGPT) 14 U/L (Less than 45); AST (SGOT) 17 U/L (11-34); Albumin 3.4 g/dL (3.1-4.5); Alkaline Phosphatase 46 U/L (40-110); Anion Gap 20 mmol/L (10-20); BUN (Urea Nitrogen) 58 mg/dL (8.4-25.7); Bilirubin, Total 0.8 mg/dL (0.3-1.2); Calc. Creatinine Clearance 0 mL/min (70-130); Calcium 9.4 mg/dL (7.8-10.44); Carbon Dioxide 22 mmol/L (22-29); Chloride 101 mmol/L (98-107); Globulin 4.3 g/dL (2.4-3.5); Glucose 106 mg/dL (70-105); Lipase 88 U/L (8-78); Potassium 5.0 mmol/L (3.5-5.1); Sodium 138 mmol/L (136-145)
[2025-09-06 04:26] LABS: Troponin I 0.051 ng/mL (< 0.028)
[2025-09-06 05:16] LABS: #Basophils 0.1 thou/uL (0.0-0.2); #Eosinophils 0.4 thou/uL (0.0-0.7); #Lymphocytes 1.4 thou/uL (1.20-3.40); #Monocytes 0.8 thou/uL (0.11-0.59); #Neutrophils 4.0 thou/uL (1.40-6.50); %Basophils 1.1 % (0.0-1.0); %Eosinophils 5.4 % (0.0-10.0); %Lymphocytes 21.1 % (21.0-51.0); %Monocytes 11.4 % (0.0-10.0); %Neutrophils 60.9 % (42.0-75.0); Hematocrit 43.0 % (42.0-52.0); Hemoglobin 13.3 g/dL (14.0-18.0); Mean Corpuscular Hemoglobin 28.4 pg (27.0-31.0); Mean Corpuscular Volume 91.5 fl (78.0-98.0); Platelet Count 265 10x3/uL (130-400); Red Blood Cell (RBC) Count 4.70 mill/uL (4.70-6.10); White Blood Cell (WBC) Count 6.5 10x3/uL (4.8-10.8)
[2025-09-06] MEDS ORDERED: Aspirin Chewable 81 MG TAB ONE (05:57)
[2025-09-06] MEDS ORDERED: Iopamidol 370 76% 100 ML VIAL ONE (12:55)
== END 2025-09-06 10:15 | disposition short-term general hospital (02) ==
LOC: BURERS 03:12
DX: R10.10 Upper abdominal pain, unspecified (principal); N28.9 Disorder of kidney and ureter, unspecified; R79.89 Other specified abnormal findings of blood chemistry; E11.9 Type 2 diabetes mellitus without complications; J44.9 Chronic obstructive pulmonary disease, unspecified; E66.01 Morbid (severe) obesity due to excess calories; I11.0 Hypertensive heart disease with heart failure; I50.9 Heart failure, unspecified; E78.5 Hyperlipidemia, unspecified; Z79.899 Other long term (current) drug therapy; Z79.82 Long term (current) use of aspirin
CPT/HCPCS: 74177; 80053; 81001; 83690; 83880; 84484; 85025; 93005; 94760; J1308; 96374; Q9967